=== PATIENT | female | born 1975 | race Caucasian/White ===

== ENCOUNTER 2016-07-31 11:08 | Inpatient (IN) | END 2016-08-16 15:30 | disposition home or self-care (01) | DRG 157 | DX: K12.31 Oral mucositis (ulcerative) due to antineoplastic therapy (principal); D61.810 Antineoplastic chemotherapy induced pancytopenia; C16.9 Malignant neoplasm of stomach, unspecified; C77.9 Secondary and unspecified malignant neoplasm of lymph node, unspecified; N39.0 Urinary tract infection, site not specified; R16.0 Hepatomegaly, not elsewhere classified; B95.1 Streptococcus, group B, as the cause of diseases classified elsewhere; K12.33 Oral mucositis (ulcerative) due to radiation; K20.9 Esophagitis, unspecified; E87.6 Hypokalemia; K29.70 Gastritis, unspecified, without bleeding; R11.2 Nausea with vomiting, unspecified; Z79.899 Other long term (current) drug therapy; Z92.3 Personal history of irradiation; R63.4 Abnormal weight loss; Z68.26 Body mass index [BMI] 26.0-26.9, adult; T45.1X5A Adverse effect of antineoplastic and immunosuppressive drugs, initial encounter; R10.2 Pelvic and perineal pain; R19.7 Diarrhea, unspecified ==

== ENCOUNTER → 2016-08-26 | Outpatient (CLI) | payer BC ==
[~2016-08-26] MED LIST: CARAS PO; LORA-441 PO
[2016-08-26 13:59] LABS: ALBUMIN 3.8 g/dl (3.3-4.9)
[2016-08-26 14:00] LABS: CHLORIDE 109 mmol/L (97-110); POTASSIUM 3.7 mmol/L (3.5-5.1); SODIUM 145 mmol/L (135-144)
[2016-08-26 14:02] LABS: ANION GAP 17 (8-16); ASPARTATE AMINO TRANSFERASE 88 IU/L (15-46); BILIRUBIN,INDIRECT 0.2 mg/dl (0-1.1); BILIRUBIN,TOTAL 0.2 mg/dl (0.2-1.3); CARBON DIOXIDE 23 mmol/L (21-31); CREATININE 0.48 mg/dl (0.44-1.00)
[2016-08-26 14:03] LABS: ALANINE AMINOTRANSFERASE 106 IU/L (13-69); ALKALINE PHOSPHATASE 149 IU/L (42-121); BLOOD UREA NITROGEN 13 mg/dl (7-20); GLUCOSE 93 mg/dl (70-220); LACTATE DEHYDROGENASE 636 IU/L (313-618); MAGNESIUM 2.1 mg/dl (1.7-2.5); TOTAL PROTEIN 7.4 g/dl (6.1-8.1)
[2016-08-26 14:34] LABS: CARCINOEMBRYONIC ANTIGEN 1.2 ng/ml (0.0-5.0)
[2016-08-26 14:39] LABS: CANCER ANTIGEN 19-9 < 1.4 U/ml (0.0-37.0)
[2016-08-26 16:46] LABS: HEMOGLOBIN 10.9 g/dl (12.0-16.0); MEAN CORPUSCULAR HEMOGLOBIN 30.8 pg (29.0-33.0); MEAN CORPUSCULAR VOLUME 90.7 fl (82.0-101.0); RED BLOOD COUNT 3.53 10^6/ul (4.20-5.40); RED CELL DISTRIBUTION WIDTH 16.5 % (11.5-14.5)
[2016-08-26 16:47] LABS: MEAN PLATELET VOLUME 7.9 fl (7.4-10.4); PLATELET COUNT 210 10^3/UL (140-440)
[2016-08-26 17:45] LABS: EOSINOPHILS # 0.2 10^3/ul (0.0-0.5); LYMPHOCYTES # 2.9 10^3/ul (0.8-2.9); MONOCYTE # 0.2 10^3/ul (0.3-0.9); NEUTROPHIL # 0.7 10^3/ul (1.6-7.5)
== END | disposition home or self-care (01) ==
LOC: LAB 13:24
PROVIDERS: ATTEND Internal Medicine Medical Oncology
DX: C16.9 Malignant neoplasm of stomach, unspecified (principal)
CPT/HCPCS: 80048; 80076; 82378; 83615; 83735; 85025; 86301

== ENCOUNTER → 2016-09-05 | Outpatient (CLI) | payer BC ==
[2016-09-05 12:12] LABS: CHLORIDE 107 mmol/L (97-110)
[2016-09-05 12:13] LABS: POTASSIUM 3.7 mmol/L (3.5-5.1); SODIUM 144 mmol/L (135-144)
[2016-09-05 12:15] LABS: ALANINE AMINOTRANSFERASE 76 IU/L (13-69); ALKALINE PHOSPHATASE 142 IU/L (42-121); ANION GAP 15 (8-16); ASPARTATE AMINO TRANSFERASE 66 IU/L (15-46); BILIRUBIN,INDIRECT 0.2 mg/dl (0-1.1); BILIRUBIN,TOTAL 0.2 mg/dl (0.2-1.3); BLOOD UREA NITROGEN 10 mg/dl (7-20); CALCIUM 9.4 mg/dl (8.4-10.2); CARBON DIOXIDE 26 mmol/L (21-31); CREATININE 0.54 mg/dl (0.44-1.00); GLUCOSE 111 mg/dl (70-220); LACTATE DEHYDROGENASE 532 IU/L (313-618); TOTAL PROTEIN 7.4 g/dl (6.1-8.1)
[2016-09-05 12:38] LABS: HEMATOCRIT 33.1 % (37.0-47.0); HEMOGLOBIN 11.2 g/dl (12.0-16.0); MEAN CORPUSCULAR HEMOGLOBIN 30.9 pg (29.0-33.0); MEAN CORPUSCULAR HGB CONC 33.9 g/dl (32.0-37.0); PLATELET COUNT 188 10^3/UL (140-440); RED BLOOD COUNT 3.63 10^6/ul (4.20-5.40); RED CELL DISTRIBUTION WIDTH 16.8 % (11.5-14.5); UNCORRECTED WBC 2.3 10^3/ul (4.8-10.8); WHITE BLOOD COUNT 2.3 10^3/ul (4.8-10.8)
[2016-09-05 12:40] LABS: CONDITION 1; LH ANALYZER COMMENTS 1
[2016-09-05 12:41] LABS: MEAN PLATELET VOLUME 7.7 fl (7.4-10.4)
[2016-09-05 12:46] LABS: CARCINOEMBRYONIC ANTIGEN 1.1 ng/ml (0.0-5.0); EOSINOPHILS # 0.3 10^3/ul (0.0-0.5); MONOCYTE # 0.1 10^3/ul (0.3-0.9); NEUTROPHIL # 0.8 10^3/ul (1.6-7.5)
[2016-09-05 12:51] LABS: CANCER ANTIGEN 19-9 < 1.4 U/ml (0.0-37.0)
== END | disposition home or self-care (01) ==
LOC: LAB 11:24
PROVIDERS: ATTEND Internal Medicine Medical Oncology
DX: C16.9 Malignant neoplasm of stomach, unspecified (principal)
CPT/HCPCS: 80048; 80076; 82378; 83615; 85025; 86301

== ENCOUNTER → 2016-09-12 | Outpatient (CLI) | payer BC ==
[2016-09-12 16:14] LABS: BASOPHILS % 0.3 % (0.0-2.0); EOSINOPHILS # 0.2 10^3/ul (0.0-0.5); EOSINOPHILS % 3.4 % (0.0-7.0); HEMATOCRIT 34.7 % (37.0-47.0); LYMPHOCYTES # 1.5 10^3/ul (0.8-2.9); LYMPHOCYTES % 33.5 % (15.0-51.0); MEAN CORPUSCULAR HEMOGLOBIN 32.2 pg (29.0-33.0); MEAN CORPUSCULAR HGB CONC 34.6 g/dl (32.0-37.0); MEAN CORPUSCULAR VOLUME 93.1 fl (82.0-101.0); MEAN PLATELET VOLUME 7.6 fl (7.4-10.4); MONOCYTE # 0.5 10^3/ul (0.3-0.9); MONOCYTES % 10.8 % (0.0-11.0); NEUTROPHIL # 2.4 10^3/ul (1.6-7.5); PLATELET COUNT 173 10^3/UL (140-440); RED BLOOD COUNT 3.73 10^6/ul (4.20-5.40); RED CELL DISTRIBUTION WIDTH 16.3 % (11.5-14.5); UNCORRECTED WBC 4.6 10^3/ul (4.8-10.8); WHITE BLOOD COUNT 4.6 10^3/ul (4.8-10.8)
[2016-09-12 16:15] LABS: CONDITION 1; LH ANALYZER COMMENTS 1
[2016-09-12 16:27] LABS: ALBUMIN 4.3 g/dl (3.3-4.9); CHLORIDE 103 mmol/L (97-110); SODIUM 144 mmol/L (135-144)
[2016-09-12 16:28] LABS: POTASSIUM 4.2 mmol/L (3.5-5.1)
[2016-09-12 16:29] LABS: CREATININE 0.51 mg/dl (0.44-1.00)
[2016-09-12 16:30] LABS: ALANINE AMINOTRANSFERASE 73 IU/L (13-69); ALKALINE PHOSPHATASE 165 IU/L (42-121); ANION GAP 18 (8-16); ASPARTATE AMINO TRANSFERASE 66 IU/L (15-46); BILIRUBIN,INDIRECT 0.2 mg/dl (0-1.1); BILIRUBIN,TOTAL 0.2 mg/dl (0.2-1.3); BLOOD UREA NITROGEN 11 mg/dl (7-20); CALCIUM 9.6 mg/dl (8.4-10.2); CARBON DIOXIDE 27 mmol/L (21-31); GLUCOSE 86 mg/dl (70-220); LACTATE DEHYDROGENASE 533 IU/L (313-618); TOTAL PROTEIN 7.7 g/dl (6.1-8.1)
[2016-09-12 17:02] LABS: CARCINOEMBRYONIC ANTIGEN 0.9 ng/ml (0.0-5.0)
[2016-09-12 17:31] LABS: CANCER ANTIGEN 19-9 < 1.4 U/ml (0.0-37.0)
== END | disposition home or self-care (01) ==
LOC: LAB 15:47
PROVIDERS: ATTEND Internal Medicine Medical Oncology
DX: C16.9 Malignant neoplasm of stomach, unspecified (principal)
CPT/HCPCS: 80048; 80076; 82378; 83615; 85025; 86301

== ENCOUNTER → 2016-09-26 | Outpatient (CLI) | payer BC ==
[2016-09-26 16:35] LABS: ADD SCAN DIFF NO
[2016-09-26 16:48] LABS: ALBUMIN 4.1 g/dl (3.3-4.9)
[2016-09-26 16:49] LABS: POTASSIUM 3.7 mmol/L (3.5-5.1)
[2016-09-26 16:50] LABS: ABNORMAL IP MESSAGE 1; HEMATOCRIT 32.4 % (37.0-47.0); HEMOGLOBIN 10.9 g/dl (12.0-16.0); MEAN CORPUSCULAR HEMOGLOBIN 30.8 pg (29.0-33.0); MEAN CORPUSCULAR HGB CONC 33.6 g/dl (32.0-37.0); MEAN CORPUSCULAR VOLUME 91.5 fl (82.0-101.0); MEAN PLATELET VOLUME 8.9 fl (7.4-10.4); PLATELET COUNT 193 10^3/UL (140-415); RED BLOOD COUNT 3.54 10^6/ul (4.20-5.40); RED CELL DISTRIBUTION WIDTH 14.3 % (11.5-14.5)
[2016-09-26 16:51] LABS: BILIRUBIN,INDIRECT 0.1 mg/dl (0-1.1); BILIRUBIN,TOTAL 0.1 mg/dl (0.2-1.3); CALCIUM 9.5 mg/dl (8.4-10.2); CREATININE 0.52 mg/dl (0.44-1.00); TOTAL PROTEIN 7.4 g/dl (6.1-8.1)
[2016-09-26 17:22] LABS: CARCINOEMBRYONIC ANTIGEN 1.2 ng/ml (0.0-5.0)
[2016-09-26 19:15] LABS: EOSINOPHILS # 0.1 10^3/ul (0.0-0.5); LYMPHOCYTES # 0.6 10^3/ul (0.8-2.9); MONOCYTE # 0.4 10^3/ul (0.3-0.9); NEUTROPHIL # 0.9 10^3/ul (1.6-7.5)
[2016-09-26 19:16] LABS: PLATELET ESTIMATE PLT APPEAR ADEQUATE
== END | disposition home or self-care (01) ==
LOC: LAB 16:33
PROVIDERS: ATTEND Internal Medicine Medical Oncology
DX: D70.9 Neutropenia, unspecified (principal)
CPT/HCPCS: 80048; 80076; 82378; 83615; 85025

== ENCOUNTER → 2016-10-03 | Outpatient (CLI) | payer BC ==
[~2016-10-03] MED LIST changes: +BUPIVACAINE 0.25% (MPF) 30 ML INJ ONE; +BUPIVACAINE 0.25%/EPI (SDV) 30 ML INJ ONE; +LIDOCAINE 1% (MPF) 30 ML INJ ONE
[2016-10-03 16:20] LABS: ADD SCAN DIFF NO
[2016-10-03 16:23] LABS: BASOPHILS % 0.3 % (0.0-2.0); EOSINOPHILS # 0.1 10^3/ul (0.0-0.5); EOSINOPHILS % 1.8 % (0.0-7.0); HEMATOCRIT 32.7 % (37.0-47.0); HEMOGLOBIN 10.6 g/dl (12.0-16.0); LYMPHOCYTES # 0.8 10^3/ul (0.8-2.9); MEAN CORPUSCULAR HEMOGLOBIN 29.9 pg (29.0-33.0); MEAN CORPUSCULAR HGB CONC 32.4 g/dl (32.0-37.0); MEAN CORPUSCULAR VOLUME 92.1 fl (82.0-101.0); MEAN PLATELET VOLUME 9.5 fl (7.4-10.4); MONOCYTE # 0.5 10^3/ul (0.3-0.9); MONOCYTES % 14.6 % (0.0-11.0); NEUTROPHIL # 1.9 10^3/ul (1.6-7.5); NEUTROPHILS % 58.1 % (39.0-77.0); PLATELET COUNT 192 10^3/UL (140-415); RED BLOOD COUNT 3.55 10^6/ul (4.20-5.40); RED CELL DISTRIBUTION WIDTH 14.5 % (11.5-14.5); WHITE BLOOD COUNT 3.3 10^3/ul (4.8-10.8)
== END | disposition home or self-care (01) ==
LOC: LAB 15:57
PROVIDERS: ATTEND Internal Medicine Medical Oncology
DX: D70.9 Neutropenia, unspecified (principal)
CPT/HCPCS: 85025

== ENCOUNTER → 2016-10-19 | Outpatient (CLI) | payer BC ==
[~2016-10-19] MED LIST changes: -BUPIVACAINE 0.25% (MPF) 30 ML INJ ONE; -BUPIVACAINE 0.25%/EPI (SDV) 30 ML INJ ONE; -LIDOCAINE 1% (MPF) 30 ML INJ ONE
[2016-10-19 11:32] LABS: ADD SCAN DIFF NO
[2016-10-19 11:43] LABS: ABNORMAL IP MESSAGE 1; HEMATOCRIT 34.3 % (37.0-47.0); HEMOGLOBIN 11.5 g/dl (12.0-16.0); MEAN CORPUSCULAR HEMOGLOBIN 30.2 pg (29.0-33.0); MEAN CORPUSCULAR HGB CONC 33.5 g/dl (32.0-37.0); MEAN PLATELET VOLUME 9.4 fl (7.4-10.4); PLATELET COUNT 179 10^3/UL (140-415); RED BLOOD COUNT 3.81 10^6/ul (4.20-5.40); RED CELL DISTRIBUTION WIDTH 13.5 % (11.5-14.5); WHITE BLOOD COUNT 1.6 10^3/ul (4.8-10.8)
[2016-10-19 12:00] LABS: ALBUMIN 4.6 g/dl (3.3-4.9)
[2016-10-19 12:01] LABS: POTASSIUM 3.9 mmol/L (3.5-5.1)
[2016-10-19 12:03] LABS: BILIRUBIN,INDIRECT 0.1 mg/dl (0-1.1); BILIRUBIN,TOTAL 0.1 mg/dl (0.2-1.3); CREATININE 0.55 mg/dl (0.44-1.00); TOTAL PROTEIN 8.2 g/dl (6.1-8.1)
[2016-10-19 12:04] LABS: CALCIUM 9.5 mg/dl (8.4-10.2)
[2016-10-19 13:06] LABS: CARCINOEMBRYONIC ANTIGEN 1.4 ng/ml (0.0-5.0)
[2016-10-19 13:35] LABS: EOSINOPHILS # 0.1 10^3/ul (0.0-0.5); LYMPHOCYTES # 0.7 10^3/ul (0.8-2.9); MONOCYTE # 0.2 10^3/ul (0.3-0.9); NEUTROPHIL # 0.5 10^3/ul (1.6-7.5)
== END | disposition home or self-care (01) ==
LOC: EEVIPCON 11:13 → LAB 11:13
PROVIDERS: ATTEND Internal Medicine Medical Oncology
DX: C16.9 Malignant neoplasm of stomach, unspecified (principal)
CPT/HCPCS: 80048; 80076; 82378; 83615; 85025

== ENCOUNTER → 2016-11-08 | Outpatient (CLI) | payer BC ==
[2016-11-08 15:49] LABS: ADD SCAN DIFF NO
[2016-11-08 15:51] LABS: BASOPHILS % 0.2 % (0.0-2.0); EOSINOPHILS # 0.1 10^3/ul (0.0-0.5); EOSINOPHILS % 2.7 % (0.0-7.0); HEMATOCRIT 35.7 % (37.0-47.0); LYMPHOCYTES # 0.8 10^3/ul (0.8-2.9); LYMPHOCYTES % 18.8 % (15.0-51.0); MEAN CORPUSCULAR HEMOGLOBIN 30.2 pg (29.0-33.0); MEAN CORPUSCULAR HGB CONC 33.6 g/dl (32.0-37.0); MEAN CORPUSCULAR VOLUME 89.9 fl (82.0-101.0); MONOCYTE # 0.3 10^3/ul (0.3-0.9); MONOCYTES % 7.1 % (0.0-11.0); NEUTROPHIL # 3.2 10^3/ul (1.6-7.5); PLATELET COUNT 234 10^3/UL (140-415); RED BLOOD COUNT 3.97 10^6/ul (4.20-5.40); RED CELL DISTRIBUTION WIDTH 13.4 % (11.5-14.5); WHITE BLOOD COUNT 4.5 10^3/ul (4.8-10.8)
[2016-11-08 16:06] LABS: ALBUMIN 4.6 g/dl (3.3-4.9)
[2016-11-08 16:07] LABS: POTASSIUM 4.2 mmol/L (3.5-5.1)
[2016-11-08 16:09] LABS: BILIRUBIN,INDIRECT 0.1 mg/dl (0-1.1); BILIRUBIN,TOTAL 0.1 mg/dl (0.2-1.3); CREATININE 0.57 mg/dl (0.44-1.00)
[2016-11-08 16:10] LABS: CALCIUM 9.4 mg/dl (8.4-10.2)
[2016-11-08 16:40] LABS: CARCINOEMBRYONIC ANTIGEN 1.4 ng/ml (0.0-5.0)
== END | disposition home or self-care (01) ==
LOC: LAB 15:29
PROVIDERS: ATTEND Internal Medicine Medical Oncology
DX: C16.9 Malignant neoplasm of stomach, unspecified (principal)
CPT/HCPCS: 80048; 80076; 82378; 83615; 85025

== ENCOUNTER → 2016-11-21 | Outpatient (CLI) | payer BC ==
[2016-11-21 11:25] LABS: ADD SCAN DIFF NO; ADD UMIC YES; URINE BILIRUBIN (Dip) NEGATIVE (NEGATIVE); URINE BLOOD (Dip) 2+ (NEGATIVE); URINE COLOR LT. YELLOW (YELLOW); URINE GLUCOSE (Dip) NEGATIVE (NEGATIVE); URINE KETONES (Dip) NEGATIVE (NEGATIVE); URINE LEUKOCYTE ESTERASE (Dip) NEGATIVE (NEGATIVE); URINE NITRITE (Dip) NEGATIVE (NEGATIVE); URINE TOTAL PROTEIN (Dip) NEGATIVE (NEGATIVE); URINE UROBILINOGEN (Dip) 0.2 E.U./dL (0.1-1.0)
[2016-11-21 11:28] LABS: BASOPHILS % 0.3 % (0.0-2.0); EOSINOPHILS # 0.1 10^3/ul (0.0-0.5); EOSINOPHILS % 3.4 % (0.0-7.0); HEMATOCRIT 35.9 % (37.0-47.0); HEMOGLOBIN 11.7 g/dl (12.0-16.0); LYMPHOCYTES # 0.8 10^3/ul (0.8-2.9); LYMPHOCYTES % 27.4 % (15.0-51.0); MEAN CORPUSCULAR HEMOGLOBIN 28.8 pg (29.0-33.0); MEAN CORPUSCULAR HGB CONC 32.6 g/dl (32.0-37.0); MEAN CORPUSCULAR VOLUME 88.4 fl (82.0-101.0); MEAN PLATELET VOLUME 9.3 fl (7.4-10.4); MONOCYTE # 0.2 10^3/ul (0.3-0.9); MONOCYTES % 7.4 % (0.0-11.0); NEUTROPHIL # 1.8 10^3/ul (1.6-7.5); NEUTROPHILS % 61.2 % (39.0-77.0); PLATELET COUNT 222 10^3/UL (140-415); RED BLOOD COUNT 4.06 10^6/ul (4.20-5.40); RED CELL DISTRIBUTION WIDTH 12.9 % (11.5-14.5)
[2016-11-21 11:41] LABS: BACTERIA,URINE MODERATE
[2016-11-21 11:56] LABS: ALANINE AMINOTRANSFERASE 57 IU/L (13-69); ALBUMIN 4.5 g/dl (3.3-4.9); ALBUMIN/GLOBULIN RATIO 1.25; ALKALINE PHOSPHATASE 160 IU/L (42-121); ANION GAP 11 (8-16); ASPARTATE AMINO TRANSFERASE 43 IU/L (15-46); BILIRUBIN,INDIRECT 0.2 mg/dl (0-1.1); BILIRUBIN,TOTAL 0.2 mg/dl (0.2-1.3); BLOOD UREA NITROGEN 11 mg/dl (7-20); CALCIUM 9.6 mg/dl (8.4-10.2); CARBON DIOXIDE 25 mmol/L (21-31); CHLORIDE 105 mmol/L (97-110); CHOL/HDL RATIO 4.8 RATIO; CHOLESTEROL 207 mg/dl (100-200); CREATININE 0.57 mg/dl (0.44-1.00); GLUCOSE 91 mg/dl (70-220); HDL CHOLESTEROL 43 mg/dl (34-88); POTASSIUM 4.2 mmol/L (3.5-5.1); SODIUM 137 mmol/L (135-144); TOTAL PROTEIN 8.1 g/dl (6.1-8.1); TRIGLYCERIDES 95 mg/dl (0-149)
== END | disposition home or self-care (01) ==
LOC: LAB 10:45
PROVIDERS: ATTEND Internal Medicine Gastroenterology
DX: C16.9 Malignant neoplasm of stomach, unspecified (principal)
CPT/HCPCS: 80053; 80061; 81001; 81003; 82607; 82652; 84443; 85025; 85651

== ENCOUNTER 2017-01-04 05:31 | Day surgery (SDC) | payer BC ==
[~2017-01-04] VITALS: Ht 162.6 cm; Wt 65.0 kg
[2017-01-04 06:30] VITALS: Ht 162.6 cm; Wt 65.0 kg
[2017-01-04 06:38] VITALS: BP 100/58; PULSE 61; RESP 28
[2017-01-04] MEDS ORDERED: MIDAZOLAM 1 MG/ML 2 ML INJ ONE ×2 (06:54→07:32)
[2017-01-04] MEDS ORDERED: POLYMYXIN/BACITRACIN 1L IRRIG ONE (07:00)
[2017-01-04] MEDS ORDERED: LIDOCAINE 1% (MDV) 20 ML INJ ONE (07:32)
[2017-01-04] MEDS ORDERED: SOD CHLORIDE 0.9% 500 ML ONE (07:33)
[2017-01-04] MEDS ORDERED: FENTAnyl 50 MCG/ML VIAL ONE (07:33)
--- NOTE | 2017-01-11 20:12 | OPR ---
DATE OF OPERATION: 01/04/2017 PREOPERATIVE DIAGNOSIS: Gastric cancer. POSTOPERATIVE DIAGNOSIS: Gastric cancer. OPERATION PERFORMED 1. Removal of a Port-A-Cath. 2. Conscious sedation, moderate sedation. SURGEON: Louise Conroy MD ANESTHESIA: Local. CONSENT: Risks, benefits, complications, alternative therapies explained to the patient, consent ob tained. OPERATIVE TECHNIQUE IN DETAIL: The patient was placed in the supine position and draped in usual st erile fashion. Lidocaine 1% was used throughout the operation for local anesthesia. A 3-cm incisio n was made over the previous scar of the Port-A-Cath. The incision was taken down to subcutaneous t issue using Metzenbaum scissors. The catheter and the port were removed in their entirety. The wou nd was irrigated and closed in 2 layers of 3-0 Vicryl suture for the deep and 4-0 Vicryl suture for running subcuticular skin closure. The patient tolerated procedure well. Dictated By: LOUISE RODRIGUEZ/TORRI Conf#: [id number] DID#: [id number]
--- NOTE | 2017-01-11 20:15 | HP ---
DATE OF ADMISSION: 01/04/2017 HISTORY OF PRESENT ILLNESS: Gastric cancer, history of Port-A-Cath. This is a 41-year-old female w ho has a history of gastric cancer, underwent Port-A-Cath placement, took subsequent chemotherapy. The patient is now being admitted for an outpatient surgery to remove the Port-A-Cath. PAST MEDICAL HISTORY: Gastric cancer. PAST SURGICAL HISTORY: Port-A-Cath placement. ALLERGIES: NONE. SOCIAL HISTORY: No smoking, drinking or drug use. PHYSICAL EXAMINATION: VITAL SIGNS: Blood pressure is 110/60, pulse is 80, respirations 18. CARDIOVASCULAR: Regular rate and rhythm. LUNGS: Clear. ABDOMEN: Soft. EXTREMITIES: Warm. IMPRESSION: Gastric cancer. RECOMMENDATION: Will proceed with the removal of Port-A-Cath. Discussed with the patient. All que stions answered. Dictated By: LOUISE RODRIGUEZ/TORRI Conf#: [id number] DID#: [id number]
== END 2017-01-04 08:10 | disposition home or self-care (01) ==
LOC: SDS 05:31
PROVIDERS: ATTEND Thoracic Surgery (Cardiothoracic Vascular Surgery)
DX: Z45.2 Encounter for adjustment and management of vascular access device (principal); Z85.028 Personal history of other malignant neoplasm of stomach
CPT/HCPCS: 36590; J1644; J2250; J3010; J7040

== ENCOUNTER → 2017-03-22 | Outpatient (CLI) | payer BC ==
[2017-03-22 08:15] LABS: BASOPHILS % 0.3 % (0.0-2.0); EOSINOPHILS % 1.1 % (0.0-7.0); HEMATOCRIT 35.5 % (37.0-47.0); HEMOGLOBIN 11.4 g/dl (12.0-16.0); LYMPHOCYTES # 0.7 10^3/ul (0.8-2.9); LYMPHOCYTES % 20.7 % (15.0-51.0); MEAN CORPUSCULAR HEMOGLOBIN 26.9 pg (29.0-33.0); MEAN CORPUSCULAR HGB CONC 32.1 g/dl (32.0-37.0); MEAN CORPUSCULAR VOLUME 83.7 fl (82.0-101.0); MEAN PLATELET VOLUME 9.7 fl (7.4-10.4); MONOCYTE # 0.4 10^3/ul (0.3-0.9); MONOCYTES % 10.1 % (0.0-11.0); NEUTROPHILS % 67.5 % (39.0-77.0); PLATELET COUNT 197 10^3/UL (140-415); RED BLOOD COUNT 4.24 10^6/ul (4.20-5.40); RED CELL DISTRIBUTION WIDTH 13.8 % (11.5-14.5); WHITE BLOOD COUNT 3.5 10^3/ul (4.8-10.8)
[2017-03-22 08:24] LABS: ALANINE AMINOTRANSFERASE 41 IU/L (13-69); ALBUMIN/GLOBULIN RATIO 1.05; ALKALINE PHOSPHATASE 157 IU/L (42-121); ANION GAP 17 (8-16); ASPARTATE AMINO TRANSFERASE 31 IU/L (15-46); BILIRUBIN,INDIRECT 0.3 mg/dl (0-1.1); BILIRUBIN,TOTAL 0.3 mg/dl (0.2-1.3); BLOOD UREA NITROGEN 14 mg/dl (7-20); CALCIUM 9.5 mg/dl (8.4-10.2); CARBON DIOXIDE 26 mmol/L (21-31); CHLORIDE 103 mmol/L (97-110); CHOL/HDL RATIO 3.2 RATIO; CHOLESTEROL 151 mg/dl (100-200); CREATININE 0.71 mg/dl (0.44-1.00); GLUCOSE 92 mg/dl (70-220); HDL CHOLESTEROL 47 mg/dl (34-88); MAGNESIUM 2.1 mg/dl (1.7-2.5); POTASSIUM 4.1 mmol/L (3.5-5.1); SODIUM 142 mmol/L (135-144); TOTAL PROTEIN 7.8 g/dl (6.1-8.1); TRIGLYCERIDES 75 mg/dl (0-149)
== END | disposition home or self-care (01) ==
LOC: LAB 07:29
DX: C16.9 Malignant neoplasm of stomach, unspecified (principal)
CPT/HCPCS: 80053; 80061; 82607; 82652; 83735; 84443; 85025; 85651

== ENCOUNTER → 2017-03-22 | Outpatient (CLI) | payer BC ==
[2017-03-22 16:23] LABS: ALBUMIN 4.1 g/dl (3.3-4.9); CALCIUM 8.9 mg/dl (8.4-10.2); CREATININE 0.78 mg/dl (0.44-1.00); POTASSIUM 4.1 mmol/L (3.5-5.1); TOTAL PROTEIN 7.5 g/dl (6.1-8.1)
[2017-03-22 16:50] LABS: CARCINOEMBRYONIC ANTIGEN 1.3 ng/ml (0.0-5.0)
== END | disposition home or self-care (01) ==
LOC: LAB 14:00
PROVIDERS: ATTEND Internal Medicine Medical Oncology
DX: C16.9 Malignant neoplasm of stomach, unspecified (principal)
CPT/HCPCS: 80048; 80076; 82378; 83090; 83615; 83921

== ENCOUNTER → 2017-08-03 | Outpatient (CLI) | END | disposition home or self-care (01) ==

== ENCOUNTER → 2018-02-08 | Outpatient (CLI) | END | disposition home or self-care (01) ==

== ENCOUNTER → 2018-09-18 | Outpatient (CLI) | payer BC | END | disposition home or self-care (01) | LOC: OBT 11:38 → LAB 16:11 | PROVIDERS: ATTEND Internal Medicine Medical Oncology | DX: C16.0 Malignant neoplasm of cardia (principal) | CPT/HCPCS: 80053; 82378; 82607; 84443; 85025; 86301 ==

== ENCOUNTER 2018-10-09 12:20 | Day surgery (SDC) | payer BC ==
[~2018-10-09] VITALS: Ht 162.6 cm; Wt 70.7 kg
[2018-10-09 13:05] VITALS: Ht 162.6 cm; Wt 70.7 kg
--- NOTE | 2018-10-09 13:43 | PREAC ---
Date/Time of Note Date/Time of Note DATE: 10/09/18 TIME: 13:42 Anesthesia Eval and Record Evaluation Time Pre-Procedure Interview DATE: 10/09/18 TIME: 13:42 Age 43 Sex female NPO: 8 hrs Preoperative diagnosis gastric ca Planned procedure egd Past Medical History Past Medical History: Includes GI: Other (gastric CA) Surgery & Anesthesia Issues No known issue Meds Anticoagulation: No Beta Anastasia within 24 hr: No Reason Beta Anastasia not given: Pt. not on B-Anastasia Reported Medications Sucralfate* (Carafate*) 1 Gm/10 Ml Susp, 1 GM PO QID, EA PT STARTED 07-30-16 [facility] CLAIMS IT MAKES HER VOMIT 07/31/16 Lorazepam* (Ativan*) 0.5 Mg Tablet, 0.5 MG PO TID PRN for ANXIETY, #60 TAB 07/31/16 Meds reviewed: Yes Allergies Coded Allergies: No Known Allergies (Verified Allergy, Unknown, 07/31/16) codeine (Verified Adverse Reaction, Mild, CRAMPING, 07/31/16) prochlorperazine (Verified Adverse Reaction, Mild, CRAMPING, 07/31/16) metoclopramide (Verified Adverse Reaction, Unknown, psychotic episode, 07/31/16) Allergies Reviewed: Yes Labs/Studies Labs Reviewed: Reviewed by anesthesiologist test: Negative Pre-procedure Exam Airway: Adequate mouth opening, Adequate thyromental dist Mallampati: Mallampati II Teeth: Normal Lung: Normal Heart: Normal ASA Physical Status ASA physical status: 2 Emergency: None Planned Anesthetic General/MAC: Mask Pre-operative Attestations Prior to commencing anesthesia and surgery, the patient was re-evaluated, there was verification of: *The patient's identity *The results of appropriate recent lab work and preoperative vital signs *The above evaluation not changing prior to induction *Anesthetic plan, risk benefits, alternative and complications discussed with patient/family; questions answered; patient/family understands, accepts and wis hes to proceed. ANNE PBALO Oct 09, 2018 13:43
[2018-10-09 13:58] VITALS: BP 99/54; PULSE 67; RESP 16
[2018-10-09] MEDS ORDERED: NO MEDS (14:23)
[2018-10-09] MEDS ORDERED: ONDANSETRON 4 MG INJ ONE (15:22)
--- NOTE | 2018-10-09 15:32 | PAC ---
Date/Time of Note Date/Time of Note DATE: 10/09/18 TIME: 15:32 Post-Anesthesia Notes Post-Anesthesia Note Last documented vital signs Vital Signs Date Temp Pulse Resp B/P (MAP) Pulse Ox O2 O2 Flow FiO2 Time Delivery Rate 10/09/18 98.3 67 16 99/54 (69) 100 Room Air 13:58 Activity: WNL Respiratory function: WNL Cardiovascular function: WNL Mental status: Baseline Pain reasonably controlled: Yes Hydration appropriate: Yes Nausea/Vomiting absent: Yes ANNE PABLO Oct 09, 2018 15:32
[2018-10-09 16:26] VITALS: BP 111/59; RESP 16
--- NOTE | 2018-10-09 16:29 | GILP ---
DATE OF PROCEDURE: 10/09/2018 PROCEDURE: Upper gastrointestinal endoscopy and biopsy. INDICATIONS: Followup gastric cancer. DESCRIPTION OF PROCEDURE: After informed consent, the patient was placed in left lateral position, s edated per anesthesia. The Olympus video endoscope was easily passed into the patient's esophagus. The instrument was advanced into a small gastric remnant. Two limbs of duodenal tissue were noted. These were traversed. These appeared normal. The instrument removed from the patient's stomach whic h was carefully examined including turnaround procedure. There was residual food in the stomach. Th e patient was moved from [id number] to better examine the stomach because of residual food. Of not e at the anastomosis, there was a thickening of a fold. Multiple biopsies of this were performed. I n addition, multiple biopsies of mild gastric erythema were performed as well. These were all done w ith a standard biopsy forceps. There is no intraoperative bleeding from any sites. Again, a turnaro und procedure was performed which was normal. The instrument was removed from the GE junction where minimal irregularity of Z-line was noted. This was biopsied. There was no intraoperative bleeding f rom the site. Again, this was biopsied with normal biopsy forceps. The instrument was removed from the patient's esophagus. This appeared otherwise normal. The patient tolerated the procedure well. COMPLICATIONS: None. IMPRESSION: 1. Retained food in stomach. 2. Small gastric remnant. 3. Thickening and anastomosis - biopsied. 4. Gastric erythema - biopsied. 5. Irregular Z-line - biopsied. PLAN: 1. Postoperative instructions were given to patient. 2. Follow up pending pathology. Dictated By: IGOR LOGAN/TORRI Conf#: [id number] DID#: [id number]
== END 2018-10-09 16:01 | disposition home or self-care (01) ==
LOC: GIL 12:20
PROVIDERS: ATTEND Internal Medicine Gastroenterology
DX: K31.89 Other diseases of stomach and duodenum (principal); Z85.028 Personal history of other malignant neoplasm of stomach; R23.4 Changes in skin texture
CPT/HCPCS: 43239; 88305; 88312; 88313; J2405

== ENCOUNTER 2019-01-15 11:17 | Day surgery (SDC) | payer BC ==
[~2019-01-15] VITALS: Ht 162.6 cm; Wt 69.2 kg
[~2019-01-15 11:17] MED LIST changes: -CARAS PO; -LORA-441 PO; +NO MEDS
--- NOTE | 2019-01-15 11:37 | PREAC ---
Date/Time of Note Date/Time of Note DATE: 01/15/19 TIME: 11:36 Anesthesia Eval and Record Evaluation Time Pre-Procedure Interview DATE: 01/15/19 TIME: 11:36 Age 43 Sex female NPO: 8 hrs Preoperative diagnosis personal history of gastric cancer Planned procedure EGD Past Medical History Past Medical History: Includes GI: Other (gastric cancer) Surgery & Anesthesia Issues No known issue Meds Anticoagulation: No Beta Anastasia within 24 hr: No Reason Beta Anastasia not given: Pt. not on B-Anastasia Reported Medications [No Meds] No Conflict Check 10/09/18 Meds reviewed: Yes Allergies Coded Allergies: No Known Allergies (Verified Allergy, Unknown, 07/31/16) codeine (Verified Adverse Reaction, Mild, CRAMPING, 07/31/16) prochlorperazine (Verified Adverse Reaction, Mild, CRAMPING, 07/31/16) metoclopramide (Verified Adverse Reaction, Unknown, psychotic episode, 07/31/16) Allergies Reviewed: Yes Labs/Studies Labs Reviewed: Reviewed by anesthesiologist test: Negative Pre-procedure Exam Airway: Adequate mouth opening, Adequate thyromental dist Mallampati: Mallampati II Teeth: Normal Lung: Normal Heart: Normal ASA Physical Status ASA physical status: 2 Emergency: None Planned Anesthetic General/MAC: Mask Planned Pain Management Parenteral pain med Pre-operative Attestations Prior to commencing anesthesia and surgery, the patient was re-evaluated, there was verification of: *The patient's identity *The results of appropriate recent lab work and preoperative vital signs *The above evaluation not changing prior to induction *Anesthetic plan, risk benefits, alternative and complications discussed with patient/family; questions answered; patient/family understands, accepts and wishes to proceed. VALERIA QUEEN MD Jan 15, 2019 11:37
[2019-01-15] MEDS ORDERED: PROPOFOL 20 ML ONE ×2 (11:54→12:40)
[2019-01-15] MEDS ORDERED: LIDOCAINE 2% (SDV) 5 ML INJ ONE (11:54)
[2019-01-15] MEDS ORDERED: ONDANSETRON 4 MG INJ IV PRN (12:00)
[2019-01-15] MEDS ORDERED: HYDROmorphONE 1 MG/5 ML IV SYRINGE IV PRN (12:00)
[2019-01-15] MEDS ORDERED: MIDAZOLAM 1 MG/ML 2 ML INJ ONE (12:04)
[2019-01-15 12:11] VITALS: Ht 162.6 cm; Wt 69.2 kg
[2019-01-15 12:24] VITALS: BP 96/52; PULSE 68; RESP 18
[2019-01-15] MEDS ORDERED: EPHEDrine 25 MG/5 ML SYG ONE (12:40)
--- NOTE | 2019-01-15 12:44 | PAC ---
Date/Time of Note Date/Time of Note DATE: 01/15/19 TIME: 12:43 Post-Anesthesia Notes Post-Anesthesia Note Activity: WNL Respiratory function: WNL Cardiovascular function: WNL Mental status: Baseline Pain reasonably controlled: Yes Hydration appropriate: Yes Nausea/Vomiting absent: Yes Comments BP: 99/60 HR: 76 RR: 15 T: 98 SaO2: 100% VALERIA QUEEN MD Jan 15, 2019 12:44
[2019-01-15] MEDS ORDERED: ONDANSETRON 4 MG INJ ONE (13:02)
[2019-01-15 13:08] VITALS: BP 93/54; PULSE 72; RESP 18
--- NOTE | 2019-01-15 19:49 | GILP ---
DATE OF PROCEDURE: 01/15/2019 PROCEDURE: Upper gastrointestinal endoscopy and biopsy. INDICATIONS: Followup of gastric cancer and intestinal metaplasia. DESCRIPTION OF PROCEDURE: After informed consent, the patient was placed in the left lateral positio n and sedated per anesthesia. The Olympus video endoscope was easily passed in the patient's esophag us. The instrument was advanced to the stomach. A small gastric remnant was noted. There was some retained food. Duodenum was seen. Of note at the anastomosis, a thickening of the fold was noted. This was seen in routine imaging as well as narrow band imaging. Eight biopsies were performed of th is area. In addition, 8 random biopsies were performed throughout the gastric remnant. There was no undue bleeding for any sites. Turnaround procedure was performed. The instrument was removed throu gh the esophagus. The esophagus appeared normal throughout. The patient tolerated procedure well. COMPLICATIONS: None. IMPRESSION: 1. Thickening at the anastomosis. 2. Small gastric remnant. 3. Retained food. PLAN: 1. Postoperative instructions were given to the patient. 2. Follow up pending pathology. 3. Future endoscopies suggest clear liquid diet the night before to avoid retained food. Dictated By: IGOR LOGAN/TORRI Conf#: [id number] DID#: [id number] CC: LAURA CUETO MD;*End*
== END 2019-01-15 15:03 | disposition home or self-care (01) ==
LOC: GIL 11:17
PROVIDERS: ATTEND Internal Medicine Gastroenterology
DX: K29.30 Chronic superficial gastritis without bleeding (principal); Z85.028 Personal history of other malignant neoplasm of stomach
CPT/HCPCS: 43239; 84703; 88305; 88312; J2250; J2405

== ENCOUNTER → 2019-03-08 | Outpatient (CLI) | payer BC | END | disposition home or self-care (01) | LOC: LAB 13:44 | PROVIDERS: ATTEND Internal Medicine Medical Oncology | DX: C16.0 Malignant neoplasm of cardia (principal) | CPT/HCPCS: 80053; 82306; 82607; 83735; 84443; 85025; 86301 ==

== ENCOUNTER → 2019-04-11 | Outpatient (CLI) | payer BC | END | disposition home or self-care (01) | LOC: LAB 12:05 | PROVIDERS: ATTEND Internal Medicine | DX: E03.9 Hypothyroidism, unspecified (principal); D64.9 Anemia, unspecified; E78.5 Hyperlipidemia, unspecified; D52.9 Folate deficiency anemia, unspecified; R73.03 Prediabetes | CPT/HCPCS: 80053; 80061; 82728; 82746; 83036; 84436; 84443; 85025 ==